=== PATIENT | female | born 1980 | race Caucasian/White ===

== ENCOUNTER 2020-10-18 13:53 | Observation (INO) | payer OTHER ==
[2020-10-19] MEDS ORDERED: FAMOTIDINE40 MG PO (19:40)
[2020-10-19] MEDS ORDERED: ONDANSETRON ODT4 MG PO (22:09)
== END 2020-10-18 16:32 | disposition home or self-care (01) ==
LOC: FBCO 13:53 → MS 15:01
PROVIDERS: ADMIT Obstetrics & Gynecology; ATTEND Obstetrics & Gynecology
DX: O60.03 Preterm labor without delivery, third trimester (principal); O09.523 Supervision of elderly multigravida, third trimester; Z3A.33 33 weeks gestation of pregnancy
CPT/HCPCS: 76815; 76817; G0378

== ENCOUNTER 2020-11-02 09:29 | Inpatient (IN) | payer OTHER ==
[~2020-11-02] VITALS: Ht 167.6 cm; Wt 77.1 kg
[~2020-11-02 09:29] MED LIST: FAMOTIDINE40 MG PO; ONDANSETRON ODT4 MG PO
--- NOTE | 2020-11-02 11:11 | NUR ---
RAPID SWAB COLLECTED
--- NOTE | 2020-11-02 15:32 | PR ---
[facility] [address] [facility] [place], [place] [address] Signed Progress Notes IP Datetime Report Generated by CPN: 11/02/2020 15:32 PROGRESS NOTES: [id number] Impression: Normal Progression of Labor; Reassuring Heart Rate Procedures: Sterile Vag Exam Plan: Augmentation Informed Consent Obtain: Vaginal Delivery VITAL SIGNS: [id number] Vital Signs: Reviewed; Within Normal Limits EXAM: [id number] Dilatation: 2.0 Effacement: 80 Station: -1 Contractions: Irregular cramping MEMBRANES: [id number] Poolin Comments: Pt seen and examined. Will start low dose pitocin. Epidural on demand FETUS A: [id number] FHR Baseline: 125 Variability: Moderate 6-25bpm Accelerations: 15X15 Decelerations: None Presentation: Vertex Comments on Fetus A: No evidence of metabolic acidosis FETUS B: [id number] Signing Physician: Supa Heath DO Copies: ~ *Electronically Signed* 11/02/20 1532 SUPA HEATH DO PATIENT NAME: MARION LANE PROGRESS NOTE DATE OF : 76 PHYSICIAN: SUPA HEATH DO [facility] #: [id number] REPORT IS CONFIDENTIAL AND NOT TO BE RELEASED WITHOUT AUTHORIZATION
--- NOTE | 2020-11-02 18:28 | PR ---
[facility] [address] [facility] [place], [place] [address] Signed Progress Notes IP Datetime Report Generated by CPN: 11/02/2020 18:28 PROGRESS NOTES: [id number] Impression: Normal Progression of Labor; Reassuring Heart Rate Procedures: Sterile Vag Exam Plan: Continue Present Management; Anticipate Vaginal Delivery Informed Consent Obtain: Vaginal Delivery VITAL SIGNS: [id number] Vital Signs: Reviewed; Within Normal Limits EXAM: [id number] Dilatation: 6.0 Effacement: 90 Station: -1 Contractions: Irregular cramping MEMBRANES: [id number] Poolin Comments: Pt seen and examined. Doing well. Comfortable w/ epidural. FHT reassuring with episodes of low baseline. Moderate variability and accels throughout. Doing well with pitocin. Anticipate FETUS A: [id number] FHR Baseline: 125 Variability: Moderate 6-25bpm Accelerations: 15X15 Decelerations: None Presentation: Vertex Comments on Fetus A: No evidence of metabolic acidosis FETUS B: [id number] Signing Physician: Supa Heath DO Copies: ~ *Electronically Signed* 11/02/20 1828 SUPA HEATH DO PATIENT NAME: MARION LANE PROGRESS NOTE DATE OF : 76 PHYSICIAN: SUPA HEATH DO RPT #: [id number] REPORT IS CONFIDENTIAL AND NOT TO BE RELEASED WITHOUT AUTHORIZATION
--- NOTE | 2020-11-03 07:55 | PR ---
[facility] [address] [facility] [place], [place] [address] Signed PP Progress Notes Datetime Report Generated by CPN: 11/03/2020 07:55 SUBJECTIVE: [id number] Pain: Within Normal Limits Nausea/Vomiting: Denies Flatus: Yes Vital Signs: [id number] Vital Signs: Reviewed; Within Normal Limits Cardiovascular: Normal Respiratory: Normal Abdomen/Uterus: Normal Lochia: Normal Vulva/Perineum: Not Done Breasts: Not Done CVA Tenderness: Normal Extremities: Normal Incision: Not Applicable Progress: Normal Exam Comments: Fundus firm U-2 nontender IMPRESSION/PLAN/PROCEDURES: [id number] Impression: Normal Progression Plan: Continue Present Management Progress Notes: Pt seen and examined. Doing well. Ambulating, voiding, and tolerating full diet. Pain and lochia minimal. well. No maternal complaints but some low glucose levels in overnight. Anticipate d/c to border status tomorrow. Signing Physician: Supa Heath DO Copies: ~ *Electronically Signed* 11/03/20 0755 SUPA HEATH DO PATIENT NAME: MARION LANE PROGRESS NOTE DATE OF : 76 PHYSICIAN: SUPA HEATH DO RPT #: [id number] REPORT IS CONFIDENTIAL AND NOT TO BE RELEASED WITHOUT AUTHORIZATION
--- NOTE | 2020-11-04 07:32 | PR ---
[facility] [address] [place], [place] [address] Signed PP Progress Notes Datetime Report Generated by CPN: 11/04/2020 07:32 SUBJECTIVE: [id number] Pain: Within Normal Limits Nausea/Vomiting: Denies Flatus: Yes Bowel Movement: Yes Vital Signs: [id number] Vital Signs: Reviewed EXAM: Ongoing Cardiovascular: Normal Respiratory: Normal Abdomen/Uterus: Normal Lochia: Normal Vulva/Perineum: Normal Breasts: Not Done CVA Tenderness: Normal Extremities: Normal Incision: Not Applicable Progress: Normal Exam Comments: Fundus firm U-2 nontender IMPRESSION/PLAN/PROCEDURES: [id number] Impression: Normal Progression Plan: Discharge Progress Notes: Pt seen and examined. Doing well. Ambulating, voiding, and tolerating full diet. Pain and lochia minimal. well. No fevers, chills, or other concerns. Desires d/c home. Planning natural family planning. Reviewed discharge instructions in detail. All questions answered. Signing Physician: Supa Heath DO Copies: ~ *Electronically Signed* 11/04/20 0732 SUPA HEATH DO PATIENT NAME: MARION LANE PROGRESS NOTE DATE OF : 76 PHYSICIAN: SUPA HEATH DO RPT #: [id number] REPORT IS CONFIDENTIAL AND NOT TO BE RELEASED WITHOUT AUTHORIZATION
== END 2020-11-04 09:40 | disposition home or self-care (01) | DRG 806 ==
LOC: FBCO 09:29 → FBC 09:55 → FBCO 12-04 09:59
PROVIDERS: ADMIT Obstetrics & Gynecology; ATTEND Obstetrics & Gynecology
PROC: 10E0XZZ Delivery of Products of Conception, External Approach (ICD-10-PCS; principal; 2020-11-02)
PROC: 00HU33Z Insertion of Infusion Device into Spinal Canal, Percutaneous Approach (ICD-10-PCS; 2020-11-02)
PROC: 3E0R3BZ Introduction of Anesthetic Agent into Spinal Canal, Percutaneous Approach (ICD-10-PCS; 2020-11-02)
PROC: 0HQ9XZZ Repair Perineum Skin, External Approach (ICD-10-PCS; 2020-11-02)
DX: O60.14X0 Preterm labor third trimester with preterm delivery third trimester, not applicable or unspecified (principal); O99.324 Drug use complicating childbirth; Z37.0 Single live birth; O98.32 Other infections with a predominantly sexual mode of transmission complicating childbirth; Z3A.35 35 weeks gestation of pregnancy; Z20.822 Contact with and (suspected) exposure to COVID-19; O70.0 First degree perineal laceration during delivery; F12.90 Cannabis use, unspecified, uncomplicated; O99.334 Smoking (tobacco) complicating childbirth; F17.210 Nicotine dependence, cigarettes, uncomplicated; A60.00 Herpesviral infection of urogenital system, unspecified; Z86.19 Personal history of other infectious and parasitic diseases; Z79.899 Other long term (current) drug therapy
CPT/HCPCS: 01960; 36415; 76819; 85027; 99406; A9270; C9803; J0702; J2540; J2590; J2795; J7121; U0003

== ENCOUNTER 2021-06-29 15:15 | Emergency (ER) | payer OTHER ==
[~2021-06-29] VITALS: Ht 182.9 cm; Wt 77.1 kg
[2021-06-29] MEDS ORDERED: JENCYCLA0.35 MG PO (15:45)
[2021-06-29] MEDS ORDERED: HYDROCODON-ACE1 EA11 PO (17:53)
== END 2021-06-29 18:58 | disposition home or self-care (01) ==
LOC: ED 15:15
DX: S52.122A Displaced fracture of head of left radius, initial encounter for closed fracture (principal); S80.02XA Contusion of left knee, initial encounter; K21.9 Gastro-esophageal reflux disease without esophagitis; F17.200 Nicotine dependence, unspecified, uncomplicated; Z79.899 Other long term (current) drug therapy; W01.0XXA Fall on same level from slipping, tripping and stumbling without subsequent striking against object, initial encounter
CPT/HCPCS: 29125; 73090; 73560; 81001; 84703; 99283-25; A9270

== ENCOUNTER 2022-05-21 10:29 | Emergency (ER) | payer OTHER ==
[~2022-05-21] VITALS: Ht 182.9 cm; Wt 77.1 kg
[~2022-05-21 10:29] MED LIST changes: +HYDROCODON-ACE1 EA11 PO; +JENCYCLA0.35 MG PO
--- OUTSIDE RECORDS SUMMARY | 2022-05-21 10:32 | XMS ---
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 EKareem VISIT COUNT (12 MO.) 2 [facility] TOTAL 2 NOTE: Visits indicate total known visits. 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
[2022-05-21] MEDS ORDERED: PROMETHEGAN25 MG PR (16:36)
== END 2022-05-21 16:56 | disposition home or self-care (01) ==
LOC: ED 10:29
DX: R11.15 Cyclical vomiting syndrome unrelated to migraine (principal); K58.0 Irritable bowel syndrome with diarrhea; K21.9 Gastro-esophageal reflux disease without esophagitis; F17.200 Nicotine dependence, unspecified, uncomplicated; Z79.899 Other long term (current) drug therapy
CPT/HCPCS: 36415; 80053; 81003; 83690; 84703; 85025; 96374; 96375; 99284-25; J1200; J1790; J2405

== ENCOUNTER 2023-02-08 16:13 | Emergency (ER) | payer OTHER ==
[~2023-02-08] VITALS: Ht 182.9 cm; Wt 63.5 kg
--- OUTSIDE RECORDS SUMMARY | ~2023-02-08 | XMS | Continuity of Care Document ---
Demographics + + + | Address | [address] | | | [place] [address] | + + + | Preferred Language | Unknown | + + + | Marital Status | Never | + + + | Zoroastrian Affiliation | Unknown | + + + | Race | White | + + + | Ethnic Group | Unknown | + + + Author + + + | Author | [facility] | + + + | Organization | [facility] | + + + | Address | [address] | | | [place] [address] | + + + | Phone | | + + + Care Team Providers + + + + | Care Television Station Manager Name | Role | Phone | + + + + Unavailable | Unavailable | + + + + Allergies No information. Encounters No information. Functional Status No information. Immunizations No information. Medications No information. Problems + + + + | date | description | facility | + + + + | 2022-05-09 16:21 | PAIN IN LEFT FINGER(S) | [facility] | + + + + | 2022-10-07 10:28 | ENCNTR SCREEN MAMMOGRAM | [facility] | | | FOR MALIGNANT NEOPLASM OF | | | | BREAST | | + + + + | 2022-10-23 11:48 | OTH ABN AND INCONCLUSIVE | [facility] | | | FINDINGS ON DX IMAGING OF | | | | BREAST | | + + + + Procedures No information. Results/Labs No information. Social History No information. Vital Signs No information."
--- OUTSIDE RECORDS SUMMARY | ~2023-02-08 | XMS | Continuity of Care Document ---
Demographics + + + | Address | [address] | | | [place] [address] | + + + | Preferred Language | Unknown | + + + | Marital Status | Never | + + + | Worship Affiliation | Unknown | + + + | Race | White | + + + | Ethnic Group | Unknown | + + + Author + + + | Author | [facility] | + + + | Organization | [facility] | + + + | Address | [address] | | | [place] [address] | + + + | Phone | | + + + Care Team Providers + + + + | Care Remote Broadcast Technician Name | Role | Phone | + [...]
[~2023-02-08 16:13] MED LIST changes: +PROMETHEGAN25 MG PR
[2023-02-08] MEDS ORDERED: OMEPRAZOLE40 MG PO (16:23)
[2023-02-08 16:56] LABS: BASOPHILS 0.4 % (0-2); EOSINOPHILS 0.7 % (0-6); HEMATOCRIT 44.7 % (35.0-50.0); LYMPHOCYTES 32.2 % (24-44); MCH 31.1 (27-36); MCHC 33.5 g/dl (30-36); MCV 92.9 fl (81-99); MONOCYTES 7.1 % (0-12); NEUTROPHILS 59.6 % (39-80); PLATELET COUNT 192 K/uL (140-440); RBC 4.81 M/ul (4.3-5.7); RDW 13.9 (10.5-15.0)
[2023-02-08 17:06] LABS: INFLUENZA B NAA NEGATIVE (NEGATIVE); RESPIRATORY SYNCYTIAL VIR NAA NEGATIVE (NEGATIVE)
[2023-02-08 17:11] LABS: ALBUMIN 3.7 g/dL (3.4-5.0); ALBUMIN/GLOBULIN RATIO 1.12 (1.1-2.4); ANION GAP 13.3 (7-21); BILIRUBIN, TOTAL 0.7 ng/dL (0.2-1.0); BUN/CREATININE RATIO 23.72 (6.0-28.6); CREATININE, SERUM 0.59 mg/dL (0.55-1.02); POTASSIUM 3.3 mmol/L (3.5-5.1)
[2023-02-08 18:16] VITALS: BP 112/76
== END 2023-02-08 18:18 | disposition home or self-care (01) ==
LOC: ED 16:13
PROVIDERS: Emergency Medicine
DX: J06.9 Acute upper respiratory infection, unspecified (principal); K21.9 Gastro-esophageal reflux disease without esophagitis; F17.200 Nicotine dependence, unspecified, uncomplicated; Z20.822 Contact with and (suspected) exposure to COVID-19; Z79.899 Other long term (current) drug therapy
CPT/HCPCS: 36415; 80053; 85025; 87502; J7030; U0002

== ENCOUNTER 2024-05-26 12:57 | Emergency (ER) | payer OTHER ==
[~2024-05-26] VITALS: Ht 167.6 cm; Wt 70.0 kg
[~2024-05-26 12:57] MED LIST changes: +OMEPRAZOLE40 MG PO
[2024-05-26] MEDS ORDERED: DICLOFENAC SODI75 MG PO (13:08)
[2024-05-26] MEDS ORDERED: HYDROCODONE/ACETA 7.5/325 TAB PO ONE (13:45)
[2024-05-26] MEDS ORDERED: ACETAMINOPHEN 500 MG TAB PO ONE (13:45)
[2024-05-26] MEDS ORDERED: predniSONE 20 MG TAB PO ONE (13:45)
[2024-05-26] MEDS ORDERED: KETOROLAC TROMETHAMINE 60 MG/2 ML VIAL IM ONE (13:45)
[2024-05-26] MEDS ORDERED: PREDNISONE20 MG PO (15:13)
[2024-05-26 15:30] VITALS: BP 113/69
== END 2024-05-26 15:35 | disposition home or self-care (01) ==
LOC: ED 12:57
DX: M54.41 Lumbago with sciatica, right side (principal); K21.9 Gastro-esophageal reflux disease without esophagitis; F17.200 Nicotine dependence, unspecified, uncomplicated
CPT/HCPCS: 96372; 99283; A9270; J1885; J7512